=== PATIENT | male | born 1980 ===

== ENCOUNTER 2019-09-16 17:40 | Emergency (ER) | payer SELFPAY ==
[~2019-09-16] VITALS: Ht 162 cm; Wt 63.2 kg
--- NOTE | 2019-09-16 18:37 | ED Cough/URI ---
General Chief Complaint: Cough/Cold/Flu Symptoms Stated Complaint: COUGH / CONGESTION / SORE THROAT / FEVER Nursing Triage Note: pt presents to ed with complaints of cough/cold/flu s/s x 3 days. pt reports fever today of 101 at 1100 which he took aleve for. pt also reports head ache, malaise, and congestion. Sepsis Screen: No Definite Risk Source: patient Exam Limitations: no limitations History of Present Illness Date Seen by Provider: Sep 16, 2019 Time Seen by Provider: 18:34 Initial Comments 39-year-old male who presents to the emergency room with complaints of cough, cold, sinus pressure and pain for the past 3 days. He reports that today he started to have a sore throat and fever as high as 101 which she took Aleve for. He also has mild headache due to his congestion. He denies nausea, vomiting, diarrhea. Associated Symptoms: fever/chills, headache, nasal congestion, nasal drainage, sore throat Allergies and Home Medications Allergies Coded Allergies: bee venom protein (honey bee) (Verified Allergy, Unknown, 09/16/19) Home Medications Amoxicillin/Potassium Clav 1 Each Tablet, 1 EACH PO BID Prescribed by: MEG LIHGT on 09/16/191916 Fluticasone Propionate 9.9 Ml [place].susp, 1 SPRAY NS DAILY 1 SPRAY EACH NARE DAILY Prescribed by: MEG LIGHT on 09/16/191916 Patient Home Medication List Home Medication List Reviewed: Yes Review of Systems Review of Systems Constitutional: see HPI; No chills; fever, malaise EENTM: see HPI, throat pain All Other Systems Reviewed Negative Unless Noted: Yes Past Phunhez-Owxmmj-Pnbnls Hx Past Med/Social Hx: Reviewed Nursing Past Med/Soc Hx Patient Social History Alcohol Use: Rarely Uses Recreational Drug Use: No Smoking Status: Current Everyday Smoker Type Used: Cigarettes Recent Foreign Travel: No Contact w/Someone Who Travel: No Recent Infectious Disease Expo: No Recent Hopitalizations: No Physical Abuse: No Sexual Abuse: No Mistreated: No Fear: No Seasonal Allergies Seasonal Allergies: No Past Medical History Surgeries: No Respiratory: No Cardiac: No Neurological: No Genitourinary: No Gastrointestinal: No Musculoskeletal: No Endocrine: Yes (hypoglycemia) Psychosocial: No Integumentary: No Blood Disorders: No Family Medical History Reviewed Nursing Family Hx Physical Exam Vital Signs - First Documented 09/16/19 18:08 Temp 36.8 Pulse 72 Resp 16 B/P (MAP) 109/66 (80) Pulse Ox 98 O2 Delivery Room Air Capillary Refill : Less Than 3 Seconds Height: '" Weight: lbs. oz. kg; 24.00 BMI Method: General Appearance: WD/WN, no apparent distress Eyes: Bilateral Eye Normal Inspection, Bilateral Eye PERRL, Bilateral Eye EOMI HEENT: PERRL/EOMI, normal ENT inspection, TMs normal, pharyngeal erythema, tonsillar exudate Respiratory: chest non-tender, lungs clear, normal breath sounds, no respiratory distress, no accessory muscle use, respiratory distress Cardiovascular: normal peripheral pulses, regular rate, rhythm, no edema, no gallop, no JVD, no murmur Extremities: normal capillary refill Neurologic/Psychiatric: alert, normal mood/affect, oriented x 3 Skin: normal color, warm/dry Progress/Results/Core Measures Suspected Sepsis Recent Fever Within 48 Hours: Yes Infection Criteria Present: None New/Unexplained Altered Menta: No Sepsis Screen: No Definite Risk SIRS Temperature: Pulse: 72 Respiratory Rate: 16 Blood Pressure 109 /66 Mean: 80 Results/Orders Lab Results Laboratory Tests Test 09/16/19 18:26 Range/Units Group A Streptococcus Screen NEGATIVE NEGATIVE My Orders Orders - MEG LIGHT Rapid Strep A Screen (09/16/19 18:22) Vital Signs/I&O 09/16/19 09/16/19 18:08 18:08 Temp 36.8 Pulse 72 Resp 16 B/P (MAP) 109/66 (80) Pulse Ox 98 O2 Delivery Room Air Capillary Refill : Less Than 3 Seconds Blood Pressure Mean: 80 POS Departure Impression Primary Impression: Sinusitis Disposition: 01 HOME, SELF-CARE Condition: Stable/Unchanged Departure-Patient Inst. Decision time for Depature: 19:11 Referrals: [facility] (PCP/Family) Primary Care Physician Patient Instructions: Sinusitis in Adults Add. Discharge Instructions: Take medications as directed. You may use ibuprofen and Tylenol nnqn-eze-[id number] as needed for pain relief. Follow-up with primary care as needed. Return back to the emergency room for worsening symptoms or concerns as needed. All discharge instructions reviewed with patient and/or family. Voiced understanding. Scripts Fluticasone Propionate (Flonase Allergy Relief) 9.9 Ml [place].susp 1 SPRAY NS DAILY, #1 EACH 1 SPRAY EACH NARE DAILY Prov: MEG LIGHT 09/16/19 Amoxicillin/Potassium Clav (Augmentin 875-125 Tablet) 1 Each Tablet 1 EACH PO BID for 7 Days, #14 TAB 0 Refills Prov: MEG LIGHT 09/16/19 Work/School Note: Work Release Form Date Seen in the Emergency Department: Sep 16, 2019 Return to Work: Sep 18, 2019 Restrictions: No Restrictions Other Restrictions Listed Below: Please excuse patient 09/16-03/31 MEG LIGHT Sep 16, 2019 18:37 POS
--- NOTE | 2019-09-16 19:11 | NUR ---
Received report from NOEMI King at this time.
[2019-09-16] MEDS ORDERED: FLUT9.9S NS (19:17)
[2019-09-16] MEDS ORDERED: AMOX-358 PO (19:17)
[2019-09-16 19:26] VITALS: BP 109/66
--- OUTSIDE RECORDS SUMMARY | 2019-10-13 01:01 | XMS REPORT | Continuity of Care Document ---
Demographics Preferred Language Unknown Marital Status Unknown Confucianism Affiliation Unknown Race Unknown Ethnic Group Unknown Author Organization Unknown Address Unknown Phone Unavailable Allergies Active Description Code Type Severity Reaction Onset Reported/Identified Relationship to Patient Clinical Status Yes bee venom protein (honey bee) [id number] Drug Allergy Unknown N/A 09/16/2019 Medications There is no data. Problems Date Dx Coded Attending Type Code Diagnosis Diagnosed By 09/16/2019 MEG LIGHT Ot F17.210 NICOTINE DEPENDENCE, CIGARETTES, UNCOMPL 09/16/2019 MEG LIGHT Ot J32.9 CHRONIC SINUSITIS, UNSPECIFIED 09/16/2019 MEG LIGHT Ot R05 COUGH Procedures There is no data. Results Test Result Range TSH w/ FREE T4 - 07/20/19 17:07 TSH 1.24 mIU/L 0.40-4.50 T4, FREE 1.1 ng/dL 0.8-1.8 CBC - 07/20/19 17:07 WHITE BLOOD CELL COUNT 8.8 Thousand/uL 3 .8-10.8 RED BLOOD CELL COUNT 5.11 Million/uL 4.2 0-5.80 HEMOGLOBIN 16.5 g/dL 13.2-17.1 HEMATOCRIT 47.5 % 38.5-50.0 MCV 93.0 fL 80.0-100.0 MCH 32.3 pg 27.0-33.0 MCHC 34.7 g/dL 32.0-36.0 RDW 12.7 % 11.0-15.0 PLATELET COUNT 267 Thousand/uL 140-400 MPV 9.6 fL 7.5-12.5 ABSOLUTE NEUTROPHILS 4946 cells/uL 1500- 7800 ABSOLUTE LYMPHOCYTES 2376 cells/uL 850-3 900 ABSOLUTE MONOCYTES 933 cells/uL 200-950 ABSOLUTE EOSINOPHILS 484 cells/uL 15-500 ABSOLUTE BASOPHILS 62 cells/uL 0-200 NEUTROPHILS 56.2 % NRG LYMPHOCYTES 27.0 % NRG MONOCYTES 10.6 % NRG EOSINOPHILS 5.5 % NRG BASOPHILS 0.7 % NRG Streptococcus pyogenes antigen detection - 09/16/19 18:26 Streptococcus pyogenes antigen detection NEGATIVE NEGATIVE Bacterial throat culture - 09/16/19 18:2 6 Bacterial throat culture NBS NRG Encounters ACCT No. Visit Date/Time Discharge Status Pt. Type Provider Facility Loc./Unit Complaint [id number] 07/20/2019 16:20:00 Document Registration [id number] 09/16/2019 17:43:00 019 19:26:00 DIS Emergency MEG LIGHT [facility] ER COUGH / CONGESTION / SO RE THROAT / FEVER
== END 2019-09-16 19:26 | disposition home or self-care (01) ==
LOC: ER 17:43
DX: J32.9 Chronic sinusitis, unspecified (principal); F17.210 Nicotine dependence, cigarettes, uncomplicated
CPT/HCPCS: 87430; 99284

== ENCOUNTER 2019-11-25 11:48 | Emergency (ER) | payer OTHER ==
[~2019-11-25] VITALS: Ht 165 cm; Wt 65.0 kg
[~2019-11-25 11:48] MED LIST: AMOX-358 PO; FLUT9.9S NS
[2019-11-25 11:50] VITALS: BP 105/64
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
[2019-11-25] MEDS ORDERED: NAPR-1071 PO (12:25)
[2019-11-25] MEDS ORDERED: METH-313 PO (12:25)
== END 2019-11-25 12:43 | disposition home or self-care (01) ==
LOC: EDUNIT# 11:48 → ER 11:49
DX: S16.1XXA Strain of muscle, fascia and tendon at neck level, initial encounter (principal); F17.210 Nicotine dependence, cigarettes, uncomplicated; Z91.030 Bee allergy status; V49.50XA Passenger injured in collision with unspecified motor vehicles in traffic accident, initial encounter
CPT/HCPCS: 72125

== ENCOUNTER 2020-12-06 10:58 | Emergency (ER) | payer SELFPAY ==
[~2020-12-06] VITALS: Ht 164 cm; Wt 70.3 kg
[~2020-12-06 10:58] MED LIST changes: +METH-313 PO; +NAPR-1071 PO
[2020-12-06] MEDS ORDERED: ONDANSETRON 4 MG (ZOFRAN) ORAL DISSOLVE TAB PO STA (11:28)
--- NOTE | 2020-12-06 11:28 | ED General ---
General Stated Complaint: COUGHING, CORDOVA, DIARRHEA Source of Information: Patient Exam Limitations: Language Barrier History of Present Illness Date Seen by Provider: Dec 06, 2020 Time Seen by Provider: 11:18 Initial Comments Patient is a 40-year-old male who presents to the emergency room today with a chief complaint of coughing, headache, diarrhea and nausea. Patient has had a symptoms for about 48 hours. His was reportedly seen and evaluated for similar symptoms in recent days. Patient denies any known fever. Denies any problems with actual vomiting but has been nauseated. The paraprofessional interpreter line was used to facilitate history from this patient who speaks broken [place]. Patient complains of some upper respiratory congestion with runny nose. No known Covid contacts. Patient denies any long-term chronic illnesses such as hypertension, diabetes. No other constitutional symptoms reported. All other review of systems reviewed and negative except as stated. Timing/Duration: 24 Hours Severity: Moderate Associated Systoms: Headaches, Nausea/Vomiting, Other (diarrhea) Allergies and Home Medications Allergies Coded Allergies: bee venom protein (honey bee) (Verified Allergy, Unknown, 09/16/19) Home Medications Methocarbamol 750 Mg Tablet, 750 MG PO Q4H PRN for PAIN-MODERATE (5-7) Prescribed by: INGA ENRIQUEZ on 11/25/19 1225 Naproxen 500 Mg Tablet, 500 MG PO BID PRN for PAIN-MODERATE (5-7) Prescribed by: INGA ENRIQUEZ on 11/25/19 1225 Ondansetron 4 Mg Tab.rapdis, 4 MG PO Q8H PRN for nausea Prescribed by: LEIF SUTTON on 12/06/20 1256 Patient Home Medication List Home Medication List Reviewed: Yes Review of Systems Review of Systems Constitutional: see HPI EENTM: nose congestion Respiratory: no symptoms reported Cardiovascular: no symptoms reported Gastrointestinal: diarrhea, nausea Genitourinary: no symptoms reported Musculoskeletal: no symptoms reported Skin: no symptoms reported Psychiatric/Neurological: Headache All Other Systems Reviewed Negative Unless Noted: Yes Past Cojrtsy-Deznlp-Ldesly Hx Patient Social History Type Used: Cigarettes Recent Hopitalizations: No Seasonal Allergies Seasonal Allergies: No Past Medical History Surgeries: No Respiratory: No Cardiac: No Neurological: No Genitourinary: No Gastrointestinal: No Musculoskeletal: No Endocrine: Yes (hypoglycemia) Psychosocial: No Integumentary: No Blood Disorders: No Physical Exam Vital Signs Vital Signs - First Documented 12/06/20 12/06/20 11:29 12:58 Temp 36.2 Pulse 75 Resp 20 B/P (MAP) 109/66 (80) Pulse Ox 98 O2 Delivery Room Air Capillary Refill : Height, Weight, BMI Height: '" Weight: lbs. oz. kg; 23.00 BMI Method: General Appearance: No Apparent Distress, WD/WN HEENT: PERRL/EOMI, Normal ENT Inspection, Pharynx Normal, TM Abnormal (L), TM Abnormal (R) (fluid behind bilateral TM's) Neck: Full Range of Motion, Non Tender, Supple Respiratory: Lungs Clear, Normal Breath Sounds, No Accessory Muscle Use, No Respiratory Distress Cardiovascular: Regular Rate, Rhythm Gastrointestinal: Normal Bowel Sounds, Non Tender, Soft Extremity: Normal Inspection, Normal Range of Motion, Non Tender, No Pedal Edema Neurologic/Psychiatric: Alert, Oriented x3, No Motor/Sensory Deficits, Normal Mood/Affect Skin: Normal Color, Warm/Dry Progress/Results/Core Measures Suspected Sepsis SIRS Temperature: Pulse: Respiratory Rate: Blood Pressure / Mean: Results/Orders Lab Results Laboratory Tests Test 12/06/20 11:29 Range/Units Coronavirus 2019 (LEIDA) Negative Negative My Orders Orders - LEIF SUTTON MD Ketorolac Injection (Toradol Injection) (12/06/20 11:30) Ondansetron Oral Dissolve Tab (Zofran (12/06/20 11:28) Covid 19 Inhouse Test (12/06/20 11:28) Medications Given in ED Vital Signs/I&O 12/06/20 12/06/20 12/06/20 11:29 11:29 12:58 Temp 36.2 36.2 Pulse 75 67 Resp 20 20 B/P (MAP) 109/66 (80) 105/66 (80) Pulse Ox 98 O2 Delivery Room Air Room Air Capillary Refill : Departure Impression Primary Impression: Gastroenteritis Disposition: 01 HOME, SELF-CARE Condition: Stable Departure-Patient Inst. Decision time for Depature: 12:50 Referrals: [facility] (PCP/Family) Primary Care Physician Patient Instructions: Viral Gastroenteritis, Adult (DC) Add. Discharge Instructions: Drink plenty of fluids to stay well-hydrated. Take the nausea medications I have prescribed as needed for upset stomach. You can take this medication every 8 hours. Follow-up with your primary care doctor. Come back to the emergency room for any worsening symptoms or new emergent com plaints. Scripts Ondansetron (Ondansetron Odt) 4 Mg Tab.rapdis 4 MG PO Q8H PRN for nausea, #15 TAB Prov: LEIF SUTTON MD 12/06/20 Work/School Note: Work Release Form Date Seen in the Emergency Department: Dec 06, 2020 Return to Work: Dec 07, 2020 LEIF SUTTON MD Dec 06, 2020 11:28
[2020-12-06] MEDS ORDERED: KETOROLAC 30 MG/ML VIAL IM ONE (11:30)
[2020-12-06] MEDS ORDERED: ONDA4TAB11 PO (12:56)
[2020-12-06 12:58] VITALS: BP 105/66
== END 2020-12-06 12:57 | disposition home or self-care (01) ==
LOC: EDUNIT# 10:58 → ER 11:01
DX: K52.9 Noninfective gastroenteritis and colitis, unspecified (principal); Z20.822 Contact with and (suspected) exposure to COVID-19; Z91.030 Bee allergy status
CPT/HCPCS: 87635; 99284

== ENCOUNTER → 2020-12-29 | Emergency (ER) | payer SELFPAY ==
[~2020-12-29] MED LIST changes: +ONDA4TAB11 PO
== END ==
LOC: EDUNIT# 18:58 → ER 18:59
DX: R41.82 Altered mental status, unspecified (principal)

== ENCOUNTER 2021-04-10 08:52 | Emergency (ER) | payer OTHER ==
[~2021-04-10] VITALS: Ht 165.1 cm; Wt 59.0 kg
--- NOTE | 2021-04-10 09:50 | ED EENT ---
History of Present Illness General Chief Complaint: Eye Problems Stated Complaint: BOTH EYE SWOLLEN/RED Nursing Triage Note: PT ARRIVED BY PRIVATE VEHICLE WITH CHIEF COMPLAINT OF EYE PAIN/REDNESS. PT WAS ALERT, ORIENTED X 4 AND AMBULATORY AT ARRIVAL. PT AMBULATED TO FAST TRACK 3. PT'S VITAL SIGNS WERE DONE. PT STATED YESTERDAY HE WAS WEED EATING AND ROCKS WENT FLYING UP. BOTH EYES HAD ROCK AND GRASS THROWN IN THEM. PT HAS MORE SEVERE REDNESS, PAIN, ITCHING, AND BLURRINESS IN RIGHT EYE. PT WAS ITCHING HIS RIGHT EYE ALL NIGHT. PT DENIES ALLERGIES TO MEDICATIONS. PMH - HYPOGLYCEMIA. DENIES SURGURIES. PT VAPES, FORMER ALCOHOL DRINKER (NOT IN 2 MONTHS), AND FORMER DRUG USER. REPORT GIVEN TO PROVIDER. Source: patient Exam Limitations: no limitations History of Present Illness Date Seen by Provider: Apr 10, 2021 Time Seen by Provider: 09:38 Initial Comments Patient to the ER by private conveyance with his and chief complaint that yesterday while weed eating at work he happened to forget his sunglasses and got some grit in both of his eyes right worse than left. It feels like something still in his eye and he has been rubbing at it. He does not wear corrective lenses. He does not have a history of eye problems. Allergies and Home Medications Allergies Coded Allergies: bee venom protein (honey bee) (Verified Allergy, Unknown, 09/16/19) Home Medications Methocarbamol 750 Mg Tablet, 750 MG PO Q4H PRN for PAIN-MODERATE (5-7) Prescribed by: INGA ENRIQUEZ on 11/25/19 1225 Naproxen 500 Mg Tablet, 500 MG PO BID PRN for PAIN-MODERATE (5-7) Prescribed by: INGA ERNIQUEZ on 11/25/19 1225 Ondansetron 4 Mg Tab.rapdis, 4 MG PO Q8H PRN for nausea Prescribed by: LEIF SUTTON on 12/06/20 1256 Patient Home Medication List Home Medication List Reviewed: Yes Review of Systems Review of Systems Constitutional: No chills, No diaphoresis Eyes: See HPI; Denies Blindness; Blurred Vision Ears: Denies Dizziness, Denies Pain Nose: denies clots, denies congestion Mouth: denies clots, denies loose teeth Throat: denies pain, denies swelling Respiratory: No cough, No short of breath All Other Systems Reviewed Negative Unless Noted: Yes Past Oxnsmog-Pmvgel-Upvmuo Hx Patient Social History Alcohol Use: Denies Use Smoking Status: Current Everyday Smoker Type Used: Cigarettes Recent Infectious Disease Expo: No Recent Hopitalizations: No Seasonal Allergies Seasonal Allergies: No Past Medical History Surgeries: No Respiratory: No Cardiac: No Neurological: No Genitourinary: No Gastrointestinal: No Musculoskeletal: No Endocrine: Yes (hypoglycemia) Psychosocial: No Integumentary: No Blood Disorders: No Physical Exam Vital Signs Vital Signs - First Documented 04/10/21 08:58 Temp 35.4 Pulse 56 Resp 16 B/P (MAP) 110/66 (81) Pulse Ox 100 O2 Delivery Room Air Height, Weight, BMI Height: '" Weight: lbs. oz. kg; 21.00 BMI Method: General Appearance: WD/WN, mild distress Eyes: bilateral eye normal inspection, bilateral eye PERRL, bilateral eye EOMI Ears: bilateral ear auricle normal, bilateral ear canal normal Nose: normal inspection, discharge Mouth/Throat: normal mouth inspection, pharynx normal Neck: full range of motion, supple Cardiovascular: normal peripheral pulses, regular rate, rhythm Respiratory: no respiratory distress, no accessory muscle use Neurologic/Psychiatric: alert, oriented x 3 Skin: normal color, warm/dry Progress/Results/Core Measures Results/Orders My Orders Orders - LYN ANGUIANO Tetracaine 0.5% Ophth Joslyn Sdv (Tetracai (04/10/21 10:00) Fluorescein Strips (Owgyw-I-Auclmx) (04/10/21 10:00) Medications Given in ED Current Medications Medications Dose Ordered Sig/Juan Route Start Time Stop Time Status Last Admin Dose Admin Fluorescein Sodium 1 mg ONCE ONCE OU 04/10/21 10:00 04/10/21 10:01 DC 04/10/21 10:03 1 MG Tetracaine HCl 4 ml ONCE ONCE OU 04/10/21 10:00 04/10/21 10:01 DC 04/10/21 10:03 4 ML Vital Signs/I&O 04/10/21 08:58 Temp 35.4 Pulse 56 Resp 16 B/P (MAP) 110/66 (81) Pulse Ox 100 O2 Delivery Room Air Blood Pressure Mean: 81 Progress Progress Note : Time: 10:33 Progress Note Suspect he has a corneal abrasion and subconjunctival hemorrhage based on Farmer lamp examination with fluorescein stain. Discussed the case with Dr. Vizcarra who would like to dilate his eyes and look inside to make sure there is not a foreign object. We will send him straight over. Both 20/40 Right is 20/50 Left is 20/30 Departure Impression Primary Impression: Corneal abrasion Qualified Codes: S05.01XA - Injury of conjunctiva and corneal abrasion without foreign body, right eye, initial encounter Additional Impressions: Contusion of eye Qualified Codes: S05.11XA - Contusion of eyeball and orbital tissues, right eye, initial encounter Subconjunctival hemorrhage of right eye Disposition: HOME, SELF-CARE Condition: Stable Departure-Patient Inst. Decision time for Depature: 10:38 Ref[place]: [facility] [place] Primary Care Physician ZAMZAM SANTILLAN OD Patient Instructions: Eye Contusion (DC), Corneal Abrasion (DC) Add. Discharge Instructions: We spoke to Dr. Vizcarra, optometry at Dr. SANTILLAN's office and she recommends you promptly present to her office for a dilated eye exam to rule out the possibility of a foreign object inside the eye or other significant trauma given the extent of injury on the outside of the eye. All discharge instructions reviewed with patient and/or family. Voiced understanding. Scripts Hydrocodone/Acetaminophen (Hydrocodone-Acetamin 5-325 mg) 1 Each Tablet 1 TAB PO Q6H PRN for PAIN-MODERATE (5-7), #12 TAB 0 Refills Prov: LYN ANGUIANO 04/10/21 Copy Copies To 1: ZAMZAM SANTILLAN OD, TITUS J Apr 10, 2021 09:50
[2021-04-10] MEDS ORDERED: TETRACAINE 0.5% OPHTH SOLN 4 ML BTL (SINGLE DOSE ONLY) OU ONE (10:00)
[2021-04-10] MEDS ORDERED: FLUORESCEIN (FLUOR-I-STRIPS) 1 MG STRP OU ONE (10:00)
[2021-04-10] MEDS ORDERED: ACHD5005 PO (10:42)
[2021-04-10 10:50] VITALS: BP 110/66
== END 2021-04-10 10:50 | disposition home or self-care (01) ==
LOC: EDUNIT# 08:52 → ER 08:55
DX: S05.11XA Contusion of eyeball and orbital tissues, right eye, initial encounter (principal); S05.12XA Contusion of eyeball and orbital tissues, left eye, initial encounter; H11.33 Conjunctival hemorrhage, bilateral; F17.210 Nicotine dependence, cigarettes, uncomplicated; F17.290 Nicotine dependence, other tobacco product, uncomplicated; X58.XXXA Exposure to other specified factors, initial encounter
CPT/HCPCS: 36430

== ENCOUNTER 2021-05-22 13:46 | Emergency (ER) | payer SELFPAY ==
[~2021-05-22] VITALS: Ht 168 cm; Wt 56.7 kg
[~2021-05-22 13:46] MED LIST changes: +ACHD5005 PO
[2021-05-22 13:52] VITALS: BP 105/60
--- NOTE | 2021-05-22 13:58 | ED Neck-Back Pain/Injury ---
General Chief Complaint: Head/Cervical Problems Stated Complaint: R SIDE NECK/SHOULDER INJ Source of Information: Patient Exam Limitations: No Limitations (INGA ENRIQUEZ APRN) History of Present Illness Date Seen by Provider: May 22, 2021 Time Seen by Provider: 13:57 Initial Comments To ER with reports of a fall on Friday while he was weed eating. He "threw his neck out". He arrives with his significant other who translates for him. No loss of consciousness. The pain does radiate down the right arm. Has been taking ibuprofen without much relief. Location: Paraspinous Muscles Timing/Duration: 2-3 Days Severity: Moderate Pain/Injury Location: Neck Method of Injury: Unknown Associated Symptoms: denies symptoms (INGA ENRIQUEZ APRN) Allergies and Home Medications Allergies Coded Allergies: bee venom protein (honey bee) (Verified Allergy, Unknown, 09/16/19) Home Medications Hydrocodone/Acetaminophen 1 Each Tablet, 1 TAB PO Q6H PRN for PAIN-MODERATE (5- 7) Prescribed by: LYN ANGUIANO on 04/10/21 1043 Methocarbamol 750 Mg Tablet, 750 MG PO Q4H PRN for PAIN-MODERATE (5-7) Prescribed by: INGA ENRIQUEZ on 11/25/19 1225 Methocarbamol 750 Mg Tablet, 750 MG PO Q6-8HR Prescribed by: INGA ENRIQUEZ on 05/22/21 1442 Naproxen 500 Mg Tablet, 500 MG PO BID PRN for PAIN-MODERATE (5-7) Prescribed by: INGA ENRIQUEZ on 11/25/19 1225 Naproxen 500 Mg Tablet, 500 MG PO BID PRN for PAIN-MODERATE (5-7) Prescribed by: INGA ENRIQUEZ on 05/22/21 1442 Ondansetron 4 Mg Tab.rapdis, 4 MG PO Q8H PRN for nausea Prescribed by: LEIF SUTTON on 12/06/20 1256 Patient Home Medication List Home Medication List Reviewed: Yes (INGA ENRIQUEZ APRN) Review of Systems Constitutional: see HPI EENTM: see HPI Respiratory: no symptoms reported Cardiovascular: no symptoms reported Genitourinary: no symptoms reported Musculoskeletal: see HPI Skin: no symptoms reported Psychiatric/Neurological: No Symptoms Reported (INGA ENRIQUEZ APRN) Past Jgvrwdp-Qnypbj-Iizpjl Hx Seasonal Allergies Seasonal Allergies: No (INGA ENRIQUEZ APRN) Past Medical History Surgeries: No Respiratory: No Cardiac: No Neurological: No Genitourinary: No Gastrointestinal: No Musculoskeletal: No Endocrine: Yes (hypoglycemia) Psychosocial: No Integumentary: No Blood Disorders: No (INGA ENRIQUEZ APRN) Physical Exam Vital Signs Vital Signs - First Documented 05/22/21 13:52 Temp 36.7 Pulse 60 Resp 18 B/P (MAP) 105/60 (75) Pulse Ox 98 (CATA VAUGHN MD) Vital Signs Capillary Refill : (INGA ENRIQUEZ APRN) Height, Weight, BMI Height: '" Weight: lbs. oz. kg; 21.00 BMI Method: General Appearance: No Apparent Distress, WD/WN HEENT: PERRL/EOMI, TMs Normal Neck: Full Range of Motion, Normal Inspection Cardiovascular: Normal Peripheral Pulses Respiratory: No Accessory Muscle Use, No Respiratory Distress Gastrointestinal: Non Tender, Soft Extremity: Normal Capillary Refill, Normal Inspection Neurologic/Psychiatric: Alert, Oriented x3 Skin: Normal Color, Warm/Dry (INGA ENRIQUEZ APRN) Progress/Results/Core Measures Results/Orders Medications Given in ED Current Medications Medications Dose Ordered Sig/Juan Route Start Time Stop Time Status Last Admin Dose Admin Ketorolac Tromethamine 60 mg ONCE ONCE IM 05/22/21 14:00 05/22/21 14:01 DC 05/22/21 14:13 60 MG Orphenadrine Citrate 60 mg ONCE ONCE IM 05/22/21 14:00 05/22/21 14:01 DC 05/22/21 14:13 60 MG (CATA VAUGHN MD) Vital Signs/I&O 05/22/21 13:52 Temp 36.7 Pulse 60 Resp 18 B/P (MAP) 105/60 (75) Pulse Ox 98 (CATA VAUGHN MD) Departure Impression Primary Impression: Concussion without loss of consciousness Additional Impression: Cervical strain Disposition: 01 HOME, SELF-CARE Condition: Stable Departure-Patient Inst. Decision time for Depature: 14:41 (INGA ENRIQUEZ APRN) Referrals: [facility] (PCP/Family) Primary Care Physician Patient Instructions: Closed Head Injury, Cervical Muscle Strain Add. Discharge Instructions: 1. Return to ER for any concerns 2. Follow up with your doctor this week All discharge instructions reviewed with patient and/or family. Voiced understanding. Scripts Methocarbamol (Methocarbamol) 750 Mg Tablet 750 MG PO Q6-8HR for Back Pain, #14 TAB Prov: INGA ENRIQUEZ APRN 05/22/21 Naproxen (Naprosyn) 500 Mg Tablet 500 MG PO BID PRN for PAIN-MODERATE (5-7), #30 TAB 0 Refills Prov: INGA ENRIUQEZ APRN 05/22/21 Work/School Note: Work Release Form Date Seen in the Emergency Department: May 22, 2021 Return to Work: May 25, 2021 ATTENDING PHYSICIAN NOTE: I was physically present as attending physician in the emergency department during the care of this patient, but I was not directly involved in the decision making or delivery of care for this patient. (CATA VAUGHN MD) INGA ENRIQUEZ APRN May 22, 2021 13:58 CATA VAUGHN MD May 22, 2021 19:48
[2021-05-22] MEDS ORDERED: KETOROLAC 60 MG/2 ML VIAL IM ONE (14:00)
[2021-05-22] MEDS ORDERED: ORPHENADRINE 60 MG/2 ML (NORFLEX) AMP (ED ONLY) IM ONE (14:00)
--- NOTE | 2021-05-22 14:31 | Diagnostic Imaging Report ---
PROCEDURE: CT head and CT cervical spine without contrast. TECHNIQUE: Multiple contiguous axial images were obtained through the brain and cervical spine without the use of intravenous contrast. Sagittal and coronal reformations through the cervical spine were then performed. Auto Exposure Controls were utilized during the CT exam to meet ALARA standards for radiation dose reduction. INDICATION: Headache and neck pain. CT HEAD: CT images of the head were obtained. FINDINGS: Ventricles and sulci are within normal limits for size. There is no intracranial hemorrhage identified. There is no abnormal mass effect or shift of midline structures. IMPRESSION: Unremarkable CT of the head. CT CERVICAL SPINE: Multiple contiguous axial CT images of the cervical spine were obtained with sagittal and coronal reformatted images produced. FINDINGS: The cervical curvature and alignment are within normal limits. The vertebral body heights and disc spaces are maintained without evidence of fracture or subluxation. There is no paraspinous hematoma. Note is made of right dental caries. IMPRESSION: No CT evidence of acute cervical spinal abnormality. Dental consultation would be useful. Dictated by: Dictated on workstation # [id number]
[2021-05-22] MEDS ORDERED: METH-732 PO (14:42)
[2021-05-22] MEDS ORDERED: NAPR-1071 PO (14:42)
== END 2021-05-22 14:45 | disposition home or self-care (01) ==
LOC: EDUNIT# 13:46 → ER 13:48
DX: S06.0X0A Concussion without loss of consciousness, initial encounter (principal); S16.1XXA Strain of muscle, fascia and tendon at neck level, initial encounter; W19.XXXA Unspecified fall, initial encounter
CPT/HCPCS: 70450; 72125